=== PATIENT | male | born 1960 | race Caucasian/White ===

== ENCOUNTER 2020-12-28 17:35 | Observation (INO) ==
[2020-12-28 20:06] LABS: Basophils # 0.1 K/mcL (0.0-0.2); Basophils % 1.9 %; Eosinophils % 0.9 %; Hematocrit 27.8 % (37.5-50.1); Hemoglobin 9.7 g/dL (12.9-16.9); Immature Granulocytes % 0.2 % (0-4); Lymphocytes # 1.3 K/mcL (0.6-4.6); Lymphocytes % 31.3 %; Mean Corpuscular HGB Conc 34.9 g/dL (31.6-35.5); Mean Corpuscular Hemoglobin 32.3 pg (28.0-33.3); Mean Corpuscular Volume 92.7 fL (83.0-100.0); Mean Platelet Volume 10.2 fL (9.4-12.4); Monocytes # 0.4 K/mcL (0.0-1.3); Monocytes % 9.2 %; Neutrophils # 2.4 K/mcL (1.6-8.9); Platelet Count 372 K/mcL (140-400); Segmented Neutrophils % 56.5 %; White Blood Count 4.2 K/mcL (4.3-11.1)
[2020-12-28] MEDS ORDERED: Isovue-370 500 ML BOTTLE IVP ONE (20:18)
[2020-12-28 20:26] LABS: BUN/Creatinine Ratio 13 (6-26); Blood Urea Nitrogen 16 mg/dL (8-23); Calcium 8.9 mg/dL (8.6-10.3); Carbon Dioxide 24 mEq/L (23-29); Chloride 101 mEq/L (98-107); Glucose 95 mg/dL (70-105); Osmolality,Calculated 293 (280-300); Potassium 3.5 mEq/L (3.5-5.1); Sodium 141 mEq/L (136-145); Troponin I < 0.03 ng/mL (< 0.04); eGFR For African Americans > 60 (> 60); eGFR For Non-African Americans > 60 (> 60)
[2020-12-28 20:45] LABS: Alanine Aminotransferase 12 Units/L (7-52); Albumin 3.8 g/dL (3.5-5.7); Albumin/Globulin Ratio 1.2 (1.1-2.2); Alkaline Phosphatase 49 Units/L (34-104); Aspartate Amino Transferase 25 Units/L (13-39); Bilirubin,Direct 0.4 mg/dL (0.0-0.2); Bilirubin,Indirect 0.9 mg/dL (0.0-1.0); Bilirubin,Total 1.3 mg/dL (0.3-1.0); Globulin 3.3 g/dL (2.4-3.5); Lipase 610 Units/L (11-82); Total Protein 7.1 g/dL (6.4-8.9)
[2020-12-28] MEDS ORDERED: 0.9 % Sodium Chloride 1,000 ML IVC ONE (22:54)
[2020-12-29 00:49] LABS: Chol/HDL Ratio 9.7 (0-4.9); Cholesterol 116 mg/dL (< 200); HDL Cholesterol 12 mg/dL (40-59); LDL Cholesterol,Calculated 66 mg/dL (< 100); Triglycerides 191 mg/dL (< 150)
[2020-12-29] MEDS ORDERED: Naloxone 0.4 MG/ML INJ IVP PRN (02:08)
[2020-12-29] MEDS ORDERED: Ondansetron 4 MG/2 ML VIAL IVP PRN (02:08)
[2020-12-29] MEDS: Ringers Solution, Lactated 1,000 ML IVC SCH ×2 (04:28→11:34)
[2020-12-29 05:07] LABS: Basophils # 0.1 K/mcL (0.0-0.2); Basophils % 1.5 %; Eosinophils # 0.1 K/mcL (0.0-0.6); Eosinophils % 1.8 %; Hematocrit 24.1 % (37.5-50.1); Hemoglobin 8.6 g/dL (12.9-16.9); Immature Granulocytes % 0.3 % (0-4); Lymphocytes # 1.6 K/mcL (0.6-4.6); Lymphocytes % 47.4 %; Mean Corpuscular HGB Conc 35.7 g/dL (31.6-35.5); Mean Corpuscular Hemoglobin 32.5 pg (28.0-33.3); Mean Corpuscular Volume 90.9 fL (83.0-100.0); Mean Platelet Volume 10.1 fL (9.4-12.4); Monocytes # 0.3 K/mcL (0.0-1.3); Monocytes % 9.4 %; Neutrophils # 1.4 K/mcL (1.6-8.9); Platelet Count 320 K/mcL (140-400); Red Blood Count 2.65 M/mcL (4.19-5.50); Red Cell Distribution Width 13.8 % (11.5-14.5); Segmented Neutrophils % 39.6 %; White Blood Count 3.4 K/mcL (4.3-11.1)
[2020-12-29 05:11] LABS: INR 1.6; Prothrombin Time 18.6 Seconds (9.4-12.1)
[2020-12-29 05:43] LABS: Alanine Aminotransferase 10 Units/L (7-52); Albumin 3.4 g/dL (3.5-5.7); Albumin/Globulin Ratio 1.2 (1.1-2.2); Alkaline Phosphatase 42 Units/L (34-104); Aspartate Amino Transferase 21 Units/L (13-39); BUN/Creatinine Ratio 14 (6-26); Bilirubin,Total 1.1 mg/dL (0.3-1.0); Blood Urea Nitrogen 16 mg/dL (8-23); Calcium 8.3 mg/dL (8.6-10.3); Carbon Dioxide 23 mEq/L (23-29); Chloride 102 mEq/L (98-107); Globulin 2.8 g/dL (2.4-3.5); Glucose 118 mg/dL (70-105); Lipase 664 Units/L (11-82); Magnesium 0.5 mg/dL (1.6-2.6); Osmolality,Calculated 296 (280-300); Potassium 3.1 mEq/L (3.5-5.1); Sodium 142 mEq/L (136-145); Total Protein 6.2 g/dL (6.4-8.9); eGFR For African Americans > 60 (> 60); eGFR For Non-African Americans > 60 (> 60)
[2020-12-29 10:34] VITALS: BP 97/57
== END 2020-12-29 14:26 | disposition home or self-care (01) ==
LOC: EMEROOARM 17:35 → 3ANU 17:35 → SUATTDRO 12-29 01:07 → 3ANU 12-29 02:00
PROVIDERS: ADMIT Internal Medicine; ATTEND Family Medicine

== ENCOUNTER 2021-05-04 15:29 | Inpatient (IN) ==
[2021-05-04] MEDS ORDERED: Ondansetron 4 MG/2 ML VIAL IVP PRN (20:42)
[2021-05-04] MEDS ORDERED: Naloxone 0.4 MG/ML INJ IVP PRN (20:42)
[2021-05-04] MEDS: 0.9 % Sodium Chloride 1,000 ML IVC SCH (21:32)
[2021-05-04 22:11] LABS: Bilirubin,Urine Moderate (Negative); Blood,Urine Negative (Negative); Clarity,Urine Clear (Clear); Color,Urine Dark-Yellow (Yellow); Glucose,Urine (UA) Normal (Normal); Ketones,Urine Negative (Negative); Leukocyte Esterase,Urine Negative (Negative); Nitrite,Urine Negative (Negative); PH,Urine 6.5 pH Units (5.0-8.0); Protein,Urine Trace mg/dL (Neg-Trace); Specific Gravity,Urine 1.021 (1.010-1.025)
[2021-05-04] MEDS ORDERED: *HR* Metoprolol 5 MG/5 ML VIAL IVP PRN (22:18)
[2021-05-04 22:24] LABS: Basophils % 0.5 %; Eosinophils % 0.5 %; Immature Granulocytes % 0.3 % (0-4); Lymphocytes # 0.5 K/mcL (0.6-4.6); Lymphocytes % 12.5 %; Mean Corpuscular HGB Conc 34.6 g/dL (31.6-35.5); Mean Corpuscular Hemoglobin 31.9 pg (28.0-33.3); Mean Corpuscular Volume 92.2 fL (83.0-100.0); Mean Platelet Volume 10.1 fL (9.4-12.4); Monocytes # 0.2 K/mcL (0.0-1.3); Neutrophils # 3.2 K/mcL (1.6-8.9); Platelet Count 119 K/mcL (140-400); Red Blood Count 2.82 M/mcL (4.19-5.50); Red Cell Distribution Width 13.2 % (11.5-14.5); Segmented Neutrophils % 81.2 %
[2021-05-04 22:30] LABS: INR 1.5
[2021-05-04 23:07] LABS: Hepatitis B Surface Antigen Nonreactive (Nonreactive)
[2021-05-04] MEDS: *HR* HYDROmorphone (PF) 1 MG/ML SYRINGE IVP PRN (23:14)
[2021-05-04 23:21] LABS: Alanine Aminotransferase 182 Units/L (7-52); Albumin 3.3 g/dL (3.5-5.7); Albumin/Globulin Ratio 1.3 (1.1-2.2); Alkaline Phosphatase 44 Units/L (34-104); Aspartate Amino Transferase 294 Units/L (13-39); BUN/Creatinine Ratio 11 (6-26); Bilirubin,Indirect 2.4 mg/dL (0.0-1.0); Bilirubin,Total 7.4 mg/dL (0.3-1.0); Blood Urea Nitrogen 13 mg/dL (8-23); Calcium 7.7 mg/dL (8.6-10.3); Carbon Dioxide 25 mEq/L (23-29); Chloride 102 mEq/L (98-107); Globulin 2.5 g/dL (2.4-3.5); Glucose 130 mg/dL (70-105); Lipase 746 Units/L (11-82); Osmolality,Calculated 280 (280-300); Potassium 3.5 mEq/L (3.5-5.1); Sodium 134 mEq/L (136-145); Total Protein 5.8 g/dL (6.4-8.9); Troponin I < 0.03 ng/mL (< 0.04); eGFR For African Americans > 60 (> 60); eGFR For Non-African Americans > 60 (> 60)
[2021-05-04 23:36] LABS: Hepatitis B Core IgM Nonreactive (Nonreactive); Hepatitis C Virus Antibody Nonreactive (Nonreactive)
[2021-05-04 23:38] LABS: Hepatitis A Antibody IgM Nonreactive (Nonreactive)
[2021-05-05] MEDS: Cefepime HCl 2,000 MG in 0.9 % Sodium Chloride Mini Bag 100 ML IVPB SCH ×2 (05:08→18:26)
[2021-05-05] MEDS: Pantoprazole 40 MG VIAL IVP SCH ×2 (05:09→18:26)
[2021-05-05 05:16] LABS: Basophils % 0.4 %; Eosinophils % 1.5 %; Hematocrit 25.6 % (37.5-50.1); Hemoglobin 8.7 g/dL (12.9-16.9); Immature Granulocytes % 0.4 % (0-4); Lymphocytes # 0.9 K/mcL (0.6-4.6); Lymphocytes % 32.4 %; Mean Corpuscular Hemoglobin 31.8 pg (28.0-33.3); Mean Corpuscular Volume 93.4 fL (83.0-100.0); Mean Platelet Volume 9.7 fL (9.4-12.4); Monocytes # 0.2 K/mcL (0.0-1.3); Neutrophils # 1.6 K/mcL (1.6-8.9); Platelet Count 120 K/mcL (140-400); Red Blood Count 2.74 M/mcL (4.19-5.50); Red Cell Distribution Width 13.2 % (11.5-14.5); Segmented Neutrophils % 57.3 %; White Blood Count 2.8 K/mcL (4.3-11.1)
[2021-05-05 05:18] LABS: INR 1.5
[2021-05-05] MEDS: *HR* HYDROmorphone (PF) 1 MG/ML SYRINGE IVP PRN ×4 (05:28→23:28)
[2021-05-05] MEDS: 0.9 % Sodium Chloride 1,000 ML IVC SCH (05:28)
[2021-05-05 05:34] LABS: BUN/Creatinine Ratio 12 (6-26); Blood Urea Nitrogen 14 mg/dL (8-23); Calcium 7.7 mg/dL (8.6-10.3); Carbon Dioxide 24 mEq/L (23-29); Chloride 103 mEq/L (98-107); Chol/HDL Ratio 9.1 (0-4.9); Cholesterol 91 mg/dL (< 200); Glucose 93 mg/dL (70-105); HDL Cholesterol 10 mg/dL (40-59); LDL Cholesterol,Calculated 53 mg/dL (< 100); Magnesium 0.7 mg/dL (1.6-2.6); Osmolality,Calculated 282 (280-300); Phosphorous 2.7 mg/dL (2.7-4.5); Potassium 3.6 mEq/L (3.5-5.1); Sodium 136 mEq/L (136-145); Triglycerides 141 mg/dL (< 150); eGFR For African Americans > 60 (> 60); eGFR For Non-African Americans > 60 (> 60)
[2021-05-05 08:39] LABS: Alanine Aminotransferase 172 Units/L (7-52); Albumin 3.3 g/dL (3.5-5.7); Albumin/Globulin Ratio 1.4 (1.1-2.2); Alkaline Phosphatase 45 Units/L (34-104); Aspartate Amino Transferase 258 Units/L (13-39); Bilirubin,Direct 5.5 mg/dL (0.0-0.2); Bilirubin,Indirect 2.7 mg/dL (0.0-1.0); Bilirubin,Total 8.2 mg/dL (0.3-1.0); Globulin 2.3 g/dL (2.4-3.5); Total Protein 5.6 g/dL (6.4-8.9)
[2021-05-05] MEDS: Ketorolac 15 MG/ML VIAL IVP PRN ×2 (09:22→20:37)
[2021-05-05] MEDS ORDERED: *HR* Heparin 5,000 UNIT/ML VIAL IVP PRN ×2 (11:25)
[2021-05-05] MEDS: Heparin 25,000UNIT/250ML 1/2NS 25,000 UNIT/250 ML IV.SOLN IVC SCH ×2 (11:54→19:27)
[2021-05-05] MEDS: *HR* Heparin 5,000 UNIT/ML VIAL IVP ONE ×2 (11:54→19:27)
[2021-05-05] MEDS ORDERED: Magnesium Sulfate 1 GM/102 ML PIGGYBACK IVPB ONE (12:00)
[2021-05-05] MEDS: MetroNIDAZOLE 500 MG/100 ML 500 MG/100 ML BAG IVPB SCH ×2 (12:01→20:25)
[2021-05-05 12:18] LABS: Hematocrit 24.8 % (37.5-50.1); Hemoglobin 8.5 g/dL (12.9-16.9); Mean Corpuscular HGB Conc 34.3 g/dL (31.6-35.5); Mean Corpuscular Hemoglobin 32.1 pg (28.0-33.3); Mean Corpuscular Volume 93.6 fL (83.0-100.0); Mean Platelet Volume 9.8 fL (9.4-12.4); Platelet Count 114 K/mcL (140-400); Red Blood Count 2.65 M/mcL (4.19-5.50); Red Cell Distribution Width 13.1 % (11.5-14.5); White Blood Count 2.7 K/mcL (4.3-11.1)
[2021-05-05 12:33] LABS: Heparin anti-factor XA UFH < 0.04 IU/mL (0.30-0.70)
[2021-05-05 12:34] LABS: INR 1.5; Prothrombin Time 16.3 Seconds (9.4-12.1)
[2021-05-05] MEDS ORDERED: Lidocaine HCL 4 ML Topical Solution (Laryng-O-Jet Kit Sterile Pak) TP ONE (13:15)
[2021-05-05] MEDS ORDERED: *HR* Midazolam HCl 2 MG/2 ML VIAL ONE (13:15)
[2021-05-05] MEDS ORDERED: *HR* FentaNYL (PF) 100 MCG/2 ML VIAL ONE (13:15)
[2021-05-05] MEDS ORDERED: *HR* OxyCODONE Immed Rel 5 MG TABLET PO PRN (13:37)
[2021-05-05] MEDS ORDERED: *HR* Labetalol 20 MG/4 ML SYRINGE IVP PRN (13:37)
[2021-05-05] MEDS ORDERED: Famotidine 20 MG/2 ML VIAL IVP ONE (13:37)
[2021-05-05] MEDS ORDERED: *HR* HYDROmorphone 2 MG TABLET PO PRN (13:37)
[2021-05-05] MEDS ORDERED: *HR* HYDROmorphone (PF) 1 MG/ML SYRINGE IVP PRN (13:37)
[2021-05-05] MEDS ORDERED: Lidocaine -MPF 2% 5 ML VIAL SQ ONE (17:43)
[2021-05-05] MEDS ORDERED: *HR* Succinylcholine 200 MG/10 ML VIAL IVP ONE (17:43)
[2021-05-05] MEDS ORDERED: *HR* Rocuronium Bromide 50 MG/5 ML VIAL IVP ONE (17:43)
[2021-05-05] MEDS ORDERED: *HR* Propofol 200 MG/20 ML VIAL IVP ONE (17:43)
[2021-05-05] MEDS ORDERED: Ondansetron 4 MG/2 ML VIAL IVP ONE (17:43)
[2021-05-05] MEDS ORDERED: Heparin 25,000UNIT/250ML 1/2NS 25,000 UNIT/250 ML IV.SOLN IVC SCH (19:46)
[2021-05-05] MEDS ORDERED: *HR* LORazepam 2 MG/ML VIAL IVP ONE (21:51)
[2021-05-06 02:25] LABS: Basophils % 1.3 %; Eosinophils # 0.1 K/mcL (0.0-0.6); Hematocrit 23.6 % (37.5-50.1); Hemoglobin 8.5 g/dL (12.9-16.9); Immature Granulocytes % 0.3 % (0-4); Lymphocytes # 0.9 K/mcL (0.6-4.6); Mean Corpuscular Hemoglobin 33.3 pg (28.0-33.3); Mean Corpuscular Volume 92.5 fL (83.0-100.0); Mean Platelet Volume 9.7 fL (9.4-12.4); Monocytes # 0.2 K/mcL (0.0-1.3); Neutrophils # 1.7 K/mcL (1.6-8.9); Platelet Count 111 K/mcL (140-400); Red Blood Count 2.55 M/mcL (4.19-5.50); Segmented Neutrophils % 57.4 %
[2021-05-06 02:48] LABS: BUN/Creatinine Ratio 16 (6-26); Blood Urea Nitrogen 17 mg/dL (8-23); Calcium 7.5 mg/dL (8.6-10.3); Carbon Dioxide 23 mEq/L (23-29); Chloride 104 mEq/L (98-107); Glucose 126 mg/dL (70-105); Magnesium 1.5 mg/dL (1.6-2.6); Osmolality,Calculated 283 (280-300); Phosphorous 1.9 mg/dL (2.7-4.5); Potassium 3.2 mEq/L (3.5-5.1); Sodium 135 mEq/L (136-145); eGFR For African Americans > 60 (> 60); eGFR For Non-African Americans > 60 (> 60)
[2021-05-06] MEDS: MetroNIDAZOLE 500 MG/100 ML 500 MG/100 ML BAG IVPB SCH ×3 (03:20→20:04)
[2021-05-06] MEDS: *HR* HYDROmorphone (PF) 1 MG/ML SYRINGE IVP PRN ×4 (03:31→21:33)
[2021-05-06] MEDS: Pantoprazole 40 MG VIAL IVP SCH ×2 (05:25→17:01)
[2021-05-06] MEDS: Cefepime HCl 2,000 MG in 0.9 % Sodium Chloride Mini Bag 100 ML IVPB SCH ×2 (05:25→17:00)
[2021-05-06] MEDS ORDERED: Potassium Phosphate 44 MEQ in 0.9 % Sodium Chloride 250 ML IVPB ONE ×2 (08:11→11:46)
[2021-05-06] MEDS ORDERED: Calcium Gluconate 1gm/50mL 1 GM/50 ML BAG IVPB ONE ×2 (08:11→11:46)
[2021-05-06 08:45] LABS: Alanine Aminotransferase 129 Units/L (7-52); Albumin 3.1 g/dL (3.5-5.7); Albumin/Globulin Ratio 1.3 (1.1-2.2); Alkaline Phosphatase 44 Units/L (34-104); Aspartate Amino Transferase 134 Units/L (13-39); Bilirubin,Indirect 1.3 mg/dL (0.0-1.0); Bilirubin,Total 3.3 mg/dL (0.3-1.0); Globulin 2.3 g/dL (2.4-3.5); Total Protein 5.4 g/dL (6.4-8.9)
[2021-05-06] MEDS ORDERED: *HR* Propofol 200 MG/20 ML VIAL IVP ONE (08:50)
[2021-05-06] MEDS ORDERED: *HR* Succinylcholine 200 MG/10 ML VIAL IVP ONE (08:50)
[2021-05-06] MEDS ORDERED: Ondansetron 4 MG/2 ML VIAL ONE (08:50)
[2021-05-06] MEDS ORDERED: *HR* Rocuronium Bromide 50 MG/5 ML VIAL ONE (08:50)
[2021-05-06] MEDS ORDERED: *HR* Midazolam HCl 2 MG/2 ML VIAL ONE (08:50)
[2021-05-06] MEDS ORDERED: Lidocaine HCL 4 ML Topical Solution (Laryng-O-Jet Kit Sterile Pak) TP ONE (08:50)
[2021-05-06] MEDS ORDERED: *HR* FentaNYL (PF) 100 MCG/2 ML VIAL ONE ×2 (08:50→10:49)
[2021-05-06] MEDS ORDERED: Lidocaine -MPF 2% 5 ML VIAL ONE (08:50)
[2021-05-06] MEDS ORDERED: cefOXitin 1,000 MG, 0.9 % Sodium Chloride 1,000 ML IR ONE (09:00)
[2021-05-06] MEDS ORDERED: *HR* HYDROmorphone (PF) 1 MG/ML SYRINGE IVP PRN ×2 (09:32→11:46)
[2021-05-06] MEDS ORDERED: *HR* OxyCODONE Immed Rel 5 MG TABLET PO PRN ×2 (09:32→11:46)
[2021-05-06] MEDS ORDERED: *HR* HYDROmorphone 2 MG TABLET PO PRN ×2 (09:32→11:46)
[2021-05-06] MEDS ORDERED: *HR* Labetalol 20 MG/4 ML SYRINGE IVP PRN ×2 (09:32→11:46)
[2021-05-06] MEDS ORDERED: Dexmedetomidine HCl 400 MCG/100 ML MLS IVC ONE (09:34)
[2021-05-06] MEDS ORDERED: Sugammadex Sodium 200 MG/2 ML VIAL IV ONE (10:29)
[2021-05-06] MEDS ORDERED: *HR* Heparin 5,000 UNIT/ML VIAL IVP PRN ×8 (11:09→20:55)
[2021-05-06] MEDS ORDERED: *HR* Heparin 5,000 UNIT/ML VIAL IVP ONE ×4 (11:09→20:55)
[2021-05-06] MEDS ORDERED: Heparin 25,000UNIT/250ML 1/2NS 25,000 UNIT/250 ML IV.SOLN IVC SCH ×5 (11:15→19:30)
[2021-05-06] MEDS ORDERED: Ketorolac 15 MG/ML VIAL IVP PRN (11:46)
[2021-05-06] MEDS ORDERED: *HR* Metoprolol 5 MG/5 ML VIAL IVP PRN (11:46)
[2021-05-06] MEDS ORDERED: Naloxone 0.4 MG/ML INJ IVP PRN (11:46)
[2021-05-06] MEDS ORDERED: Ondansetron 4 MG/2 ML VIAL IVP PRN (11:46)
[2021-05-06 12:46] LABS: Hemoglobin 8.5 g/dL (12.9-16.9); Mean Corpuscular HGB Conc 35.4 g/dL (31.6-35.5); Mean Corpuscular Hemoglobin 32.8 pg (28.0-33.3); Mean Corpuscular Volume 92.7 fL (83.0-100.0); Mean Platelet Volume 9.6 fL (9.4-12.4); Platelet Count 113 K/mcL (140-400); Red Blood Count 2.59 M/mcL (4.19-5.50); Red Cell Distribution Width 13.1 % (11.5-14.5); White Blood Count 4.2 K/mcL (4.3-11.1)
[2021-05-06 12:54] LABS: Heparin anti-factor XA UFH < 0.04 IU/mL (0.30-0.70); INR 1.2; Prothrombin Time 13.8 Seconds (9.4-12.1)
[2021-05-06] MEDS: diazePAM 5 MG TABLET PO SCH ×2 (16:59→20:03)
[2021-05-06 21:32] LABS: Hematocrit 24.4 % (37.5-50.1); Hemoglobin 8.5 g/dL (12.9-16.9)
[2021-05-07 03:24] VITALS: PULSE 83; O2SAT 96
[2021-05-07] MEDS: *HR* HYDROmorphone (PF) 1 MG/ML SYRINGE IVP PRN (03:41)
[2021-05-07 03:50] LABS: Hematocrit 25.4 % (37.5-50.1); Hemoglobin 8.8 g/dL (12.9-16.9); Immature Granulocytes % 0.3 % (0-4); Lymphocytes # 0.3 K/mcL (0.6-4.6); Lymphocytes % 8.3 %; Mean Corpuscular HGB Conc 34.6 g/dL (31.6-35.5); Mean Corpuscular Hemoglobin 32.2 pg (28.0-33.3); Mean Platelet Volume 11.9 fL (9.4-12.4); Monocytes # 0.3 K/mcL (0.0-1.3); Monocytes % 6.5 %; Neutrophils # 3.3 K/mcL (1.6-8.9); Platelet Count 112 K/mcL (140-400); Red Blood Count 2.73 M/mcL (4.19-5.50); Segmented Neutrophils % 84.9 %; White Blood Count 3.9 K/mcL (4.3-11.1)
[2021-05-07 04:01] LABS: BUN/Creatinine Ratio 14 (6-26); Blood Urea Nitrogen 13 mg/dL (8-23); Calcium 8.3 mg/dL (8.6-10.3); Carbon Dioxide 21 mEq/L (23-29); Chloride 104 mEq/L (98-107); Glucose 133 mg/dL (70-105); Magnesium 1.7 mg/dL (1.6-2.6); Osmolality,Calculated 284 (280-300); Phosphorous 2.4 mg/dL (2.7-4.5); Potassium 4.2 mEq/L (3.5-5.1); Sodium 136 mEq/L (136-145); eGFR For African Americans > 60 (> 60); eGFR For Non-African Americans > 60 (> 60)
[2021-05-07] MEDS: Pantoprazole 40 MG VIAL IVP SCH (04:54)
[2021-05-07] MEDS: MetroNIDAZOLE 500 MG/100 ML 500 MG/100 ML BAG IVPB SCH (04:55)
[2021-05-07] MEDS: Cefepime HCl 2,000 MG in 0.9 % Sodium Chloride Mini Bag 100 ML IVPB SCH (04:56)
[2021-05-07 07:38] VITALS: BP 120/65; TEMP 97.5
[2021-05-07] MEDS ORDERED: hydrOXYzine pamoate 25 MG CAPSULE PO PRN (07:54)
[2021-05-07] MEDS: diazePAM 5 MG TABLET PO SCH (08:39)
[2021-05-07] MEDS ORDERED: lamoTRIgine 100 MG TABLET PO SCH (09:00)
[2021-05-07] MEDS ORDERED: Levothyroxine 25 MCG TABLET PO SCH (09:00)
[2021-05-07] MEDS ORDERED: Fenofibrate 54 MG TABLET PO SCH (09:00)
[2021-05-07] MEDS ORDERED: Loratadine 10 MG TABLET PO SCH (09:00)
[2021-05-07] MEDS ORDERED: Folic Acid 1 MG TABLET PO SCH (09:00)
[2021-05-07] MEDS ORDERED: atenoloL 50 MG TABLET PO SCH (21:00)
[2021-05-07] MEDS ORDERED: *HR* Rivaroxaban 15 MG TABLET PO SCH (21:00)
[2021-05-07] MEDS ORDERED: Cholecalciferol (D-3) 1,000 UNIT (25MCG) TABLET PO SCH (21:00)
== END 2021-05-07 11:10 | disposition short-term general hospital (02) | DRG 263 ==
LOC: 3ANU
PROVIDERS: ADMIT Internal Medicine; ATTEND Internal Medicine